=== PATIENT | male | born 1975 | race Caucasian/White ===

== ENCOUNTER 2024-05-02 16:15 | Emergency (ER) | payer BC, SELFPAY ==
[2024-05-02 16:18] VITALS: BP 120/62; PULSE 67; RESP 18; TEMP 36.4; O2SAT 99; BMI 20.6
--- NOTE | 2024-05-02 16:46 | ED.GENADULT ---
HPI - General Adult General Chief complaint: Ear/Nose/Throat Problem Stated complaint: Right ear drum rupture Time Seen by Provider: 05/02/24 16:27 Source: patient Mode of arrival: ambulatory Limitations: no limitations History of Present Illness HPI narrative: 48-year-old male coming in today complaining of left-sided ear pain. Patient states that 2 days ago he was having right-sided ear pain that was quite significant and lasted for about 30 minutes. Then the pain told and he had blood dripping out of his ear. He states that his left ear started feeling the same way today. He states he has been ill for about 3 weeks with cough, congestion achiness. For the most part his symptoms have resolved except for the bilateral ear pain and the pressure across his face. No fevers or chills. Changes in his appetite. No significant body aches. He does have a sore throat. His cough has resolved. He denies any recent antibiotic use. He does take Prozac and hydroxyzine for anxiety. 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 Related Data Home Medications ?Medication ?Instructions ?Recorded ?Confirmed fluoxetine 20 mg capsule (Prozac) 20 mg PO DAILY 05/02/24 05/02/24 Previous Rx's ?Medication ?Instructions ?Recorded amoxicillin 875 mg-potassium 1 tab PO BID 7 days #14 tabs 05/02/24 clavulanate 125 mg tablet Allergies Allergy/AdvReac Type Severity Reaction Status Date / Time No Known Drug Allergies Allergy Verified 05/02/24 16:26 Review of Systems Status of ROS: Reports: 10 or more systems reviewed and unremarkable except as noted in History and below Exam Narrative: Exam Narrative: Well-nourished well-developed patient in no acute distress. Alert and oriented. Answers questions appropriately. Mood and affect are appropriate. Thoughts are goal oriented and rational. No tangential or magical thinking noted. Patient speaks in full sentences without needing to catch his breath. HEENT: Normocephalic atraumatic. Pupils are equally round reactive to light. Extraocular muscles are intact. Conjunctivae are moist without any icterus noted. Moist mucous membranes. Posterior pharynx is normal. Neck is soft without any lymphadenopathy or thyromegaly. No masses are appreciated. Right TM is ruptured, left TM is bulging with pus behind the tympanic membrane. Cardiovascular: Heart is regular rate and rhythm S1 and S2 are present without any murmurs. Lungs: Clear to auscultation bilaterally no wheezes rhonchi or rales are appreciated. Patient takes deep breaths without any discomfort. Skin: Well perfused without any obvious rashes. Const: Vital Signs, click to edit/add: Vital Signs - 24 hr 05/02/24 16:18 Temperature 97.6 F Pulse Rate [Pulse Oximeter] 67 Respiratory Rate 18 Blood Pressure [Ri ght Upper Arm] 120/62 Pulse Oximetry 99 Oxygen Delivery Me thod Room Air Course Course ED Course: Patient was asking to be swabbed for COVID and influenza since he has been sick for so long. His triple swab is negative. Vital Signs Vital signs: Initial Vital Signs Temperature 97.6 F 05/02/24 16:18 Temperature Source Temporal Artery Scan 05/02/24 16:18 Pulse Rate 67 05/02/24 16:18 Respiratory Rate 18 05/02/24 16:18 Blood Pressure 120/62 05/02/24 16:18 Blood Pressure Mean 81 05/02/24 16:18 Blood Pressure Position Sitting 05/02/24 16:18 Pulse Oximetry 99 05/02/24 16:18 Oxygen Delivery Method Room Air 05/02/24 16:18 Vital Signs Temperature 97.6 F 05/02/24 16:18 Pulse Rate 67 05/02/24 16:18 Respiratory Rate 18 05/02/24 16:18 Blood Pressure 120/62 05/02/24 16:18 Pulse Oximetry 99 05/02/24 16:18 Oxygen Delivery Method Room Air 05/02/24 16:18 Temperature 97.6 F 05/02/24 16:18 Pulse Rate 67 05/02/24 16:18 Respiratory Rate 18 05/02/24 16:18 Blood Pressure 120/62 05/02/24 16:18 Pulse Oximetry 99 05/02/24 16:18 Oxygen Delivery Method Room Air 05/02/24 16:18 Medical Decision Making MDM Narrative Medical decision making narrative: 48-year-old male with bilateral otitis media, right-sided ruptured tympanic membrane. Probable sinusitis. Will treat the patient with Augmentin b.i.d. for 7 days. Lab Data Labs: Lab Results 05/02/24 Range/Units 16:30 SARS-CoV-2 (PCR) Negative SARS-CoV-2 (Negative) Influenza Type A (PCR) Negative PCR FLU A (Negative) Influenza Type B (PCR) Negative PCR FLU B (Negative) RSV (PCR) Negative PCR RSV (Negative) Discharge Plan Discharge Clinical Impression: Otitis media, Ruptured eardrum, Sinusitis Patient Disposition: Home, Self-Care Condition: Stable Additional Instructions: Always keep your ear dry. Do not let your ear get wet, such as when bathing or swimming. Water may cause your damaged eardrum to heal more slowly and increase your risk for infection. Do not put anything in your ear. Never put objects such as cotton swabs in your ear. Pointed objects may damage or worsen the damage to your eardrum. Try not to blow your nose. The increase in pressure may cause further damage to your eardrum. Follow-up with your primary care provider in approximately 1 week for re-examination to make sure that your ear is healing appropriately. The left ear drum may also rupture in the next couple days. Take all antibiotics as prescribed. Prescriptions: New amoxicillin-pot clavulanate 875-125 mg tablet 1 tab PO BID 7 Days Qty: 14 0RF No Action fluoxetine [Prozac] 20 mg capsule 20 mg PO DAILY Stand Alone Forms: [employer] Info Instructions
[2024-05-02 17:20] LABS: PCR FLU A Negative PCR FLU A (Negative); PCR FLU B Negative PCR FLU B (Negative); PCR RSV Negative PCR RSV (Negative); SARS PCR* Negative SARS-CoV-2 (Negative)
--- NOTE | 2024-05-03 10:04 | ED.NURSE ---
patient returned requesting a return to work note. patient denies dizziness and given a note that stated patient could return to work with no limitations.
== END 2024-05-02 17:36 | disposition home or self-care (01) ==
LOC: ED 17:27
PROVIDERS: Emergency Provider Family Medicine
DX: H66.92 Otitis media, unspecified, left ear (principal); H72.92 Unspecified perforation of tympanic membrane, left ear; J32.9 Chronic sinusitis, unspecified
CPT/HCPCS: 87631; 87651; 99283; 99284